=== PATIENT | male | born 1995 | race Caucasian/White ===

== ENCOUNTER 2017-01-05 03:59 | Emergency (ER) | payer SELFPAY ==
[~2017-01-05] VITALS: Ht 185.4 cm; Wt 60.0 kg
[2017-01-05 04:05] VITALS: BP 121/86
== END 2017-01-05 06:08 | disposition left against medical advice (07) ==
LOC: EME → EDBD 03:59 → EME 03:59
DX: S01.81XA Laceration without foreign body of other part of head, initial encounter (principal); F10.129 Alcohol abuse with intoxication, unspecified; F19.10 Other psychoactive substance abuse, uncomplicated; W01.198A Fall on same level from slipping, tripping and stumbling with subsequent striking against other object, initial encounter; F17.200 Nicotine dependence, unspecified, uncomplicated
CPT/HCPCS: 70450; 99281; 99284